=== PATIENT | female | born 2000 | race Hispanic/Latino ===

== ENCOUNTER 2023-12-02 13:09 | Emergency (ER) | payer OTHER ==
[~2023-12-02] VITALS: Ht 157.5 cm; Wt 74.1 kg
[2023-12-02] MEDS ORDERED: MULTTAB20 PO (13:16)
[2023-12-02] MEDS: BACITRACIN OINTMENT 30GM TUBE TOP ONE (13:58)
[2023-12-02 14:31] VITALS: BP 118/62; TEMP 98.1; O2SAT 99
== END 2023-12-02 14:34 | disposition home or self-care (01) ==
LOC: M ED 13:09
DX: S61.215A Laceration without foreign body of left ring finger without damage to nail, initial encounter (principal); S61.213A Laceration without foreign body of left middle finger without damage to nail, initial encounter; Y92.019 Unspecified place in single-family (private) house as the place of occurrence of the external cause; Y93.9 Activity, unspecified; Y99.9 Unspecified external cause status; Z79.810 Long term (current) use of selective estrogen receptor modulators (SERMs)